=== PATIENT | male | born 1945 | race Hispanic/Latino ===

== ENCOUNTER 2017-01-22 09:30 | Emergency (ER) | payer MEDICARE ==
--- NOTE | 2017-01-22 09:40 | Emergency Department Report ---
ED Neuro Deficit HPI - General Chief Complaint: Neuro Symptoms/Deficit Stated Complaint: POSS STROKE Time Seen by Provider: 01/22/17 09:37 Source: patient, EMS (verbal report received from EMS.ems notes not available at time of chart dictation) Limitations: Physical Limitation - History of Present Illness Initial Comments: Past medical history: Hypertension, distant history of necrotizing fasciitis Primary care DrAdia: Rohit This is a 71-year-old male, previously unknown to this provider, brought to the hospital by EMS as a possible code stroke. Patient reports that at 1:00 in the morning, he went up to go to the bathroom, and felt like his left leg wasn't working correctly. He then went back to sleep. He reports waking up at 7:00 in the morning, still with persistent left sided leg weakness, and then reports that at 7:15 in the morning, developed clumsiness in the left upper extremity, as well as left-sided facial droop. He is not having any pain. His symptoms are constant. They did not have exacerbating or relieving factors. -: Gradual Location: left face, left arm, left leg Presenting Symptoms: Present: Weak/Paralyzed One Side, Facial Droop/Numbness History of same: No Place: home Severity: moderate Quality: weak, numb Improves With: none Worsens With: none On Anticoagulants: No Context: gradual onset Associated Symptoms: denies: confusion, chest pain, cough, diaphoresis, fever/ chills, headaches, loss of appetite, malise, nausea/vomiting, vertigo, shortness of breath, syncope, weakness - Related Data Allergies/Adverse Reactions: Allergies Allergy/AdvReac Type Severity Reaction Status Date / Time No Known Allergies Allergy Unverified 01/22/17 09:39 ED Review of Systems ROS: Stated complaint: POSS STROKE Other details as noted in HPI Constitutional: denies: fever Eyes: denies: eye discharge ENT: denies: epistaxis Respiratory: denies: cough Cardiovascular: denies: chest pain Gastrointestinal: denies: abdominal pain Genitourinary: denies: dysuria Musculoskeletal: denies: back pain Skin: denies: lesions Neurological: weakness ED Neuro Physical Exam - General Limitations: Physical Limitation General appearance: alert, in no apparent distress Suspected Stroke: Yes - Head Head exam: Present: atraumatic, normocephalic - Eye Eye exam: Present: normal appearance, EOMI. Absent: nystagmus - ENT ENT exam: Present: normal exam, normal orophraynx, mucous membranes moist, normal external ear exam - Neck Neck exam: Present: normal inspection, full ROM. Absent: tenderness, meningismus - Respiratory Respiratory exam: Present: normal lung sounds bilaterally. Absent: respiratory distress, wheezes, rales, rhonchi, stridor, chest wall tenderness, accessory muscle use, decreased breath sounds, prolonged expiratory - Cardiovascular Cardiovascular Exam: Present: regular rate, normal rhythm, normal heart sounds. Absent: bradycardia, tachycardia, irregular rhythm, systolic murmur, diastolic murmur, rubs, gallop - GI/Abdominal GI/Abdominal exam: Present: soft, normal bowel sounds. Absent: distended, tenderness, guarding, rebound, rigid - Rectal Rectal exam: Present: deferred - Extremities Exam Extremities exam: Present: normal inspection, full ROM, normal capillary refill. Absent: tenderness, calf tenderness - Back Exam Back exam: Present: normal inspection. Absent: tenderness, CVA tenderness (R) - Neurological Exam Neurological exam: Present: alert, oriented X3, motor sensory deficit (there is 4 out of 5 strength left upper extremity. Left upper extremity is clumsy and ataxic. There is a left-sided facial droop which is minor. Extraocular movements are intact bilaterally. The tongue is midline. V1, V2, V3 intact bilaterally. Shoulder shrug intact bilaterally. Hearing intact bilaterally. 5 out of 5 strength right upper, bilateral lower extremities. Sensation intact to light touch upper and lower extremities) - NIHSS Assessment Interval: Baseline 1a. Level of Consciousness: alert 1b. LOC Questions: answers correctly 1c. LOC Commands: performs tasks correctly 2. Best Gaze: normal 3. Visual: no visual loss 4. Facial Palsy: minor paralysis 5b. Motor Arm Right: no drift 5a. Motor Arm Left: drift 6a. Motor Leg Left: no drift 6b. Motor Leg Right: no drift 7. Limb Ataxia: present 1 limb 8. Sensory: normal 9. Best Language: no aphasia 10. Dysarthria: normal 11. Extinction/Inattention: no abnormality Total Score: 3 Stroke Severity: Minor Stroke - Psychiatric Psychiatric exam: Present: normal affect, normal mood - Skin Skin exam: Present: warm, dry, intact, normal color. Absent: rash ED Course Vital Signs 01/22/17 01/22/17 01/22/17 09:51 09:59 10:00 Temperature 97.9 F Pulse Rate 88 78 82 Respiratory 16 18 Rate Blood Pressure 150/82 154/77 O2 Sat by Pulse 99 94 Oximetry 01/22/17 01/22/17 01/22/17 10:11 10:21 10:30 Temperature Pulse Rate 82 81 91 H Respiratory 18 14 14 Rate Blood Pressure 154/77 154/77 149/86 O2 Sat by Pulse 98 96 96 Oximetry - Reevaluation(s) Reevaluation #1: 01/22/17 11:07 Patient accepted to [facility], Dr. Isidro Colindres is the accepting physician for [place] - Lab Data Result diagrams: 01/22/17 Unknown 01/22/17 Unknown Lab Results 01/22/17 01/22/17 01/22/17 Range/Units Unknown Unknown Unknown WBC 6.4 (4.5-11.0) K/mm3 RBC 4.50 (3.65-5.03) M/mm3 Hgb 15.8 H (11.8-15.2) gm/dl Hct 45.0 (35.5-45.6) % MCV 100 H (84-94) fl MCH 35 H (28-32) pg MCHC 35 H (32-34) % RDW 13.4 (13.2-15.2) % Plt Count 140 (140-440) K/mm3 Lymph % (Auto) 18.2 (13.4-35.0) % [place] % (Auto) 9.8 H (0.0-7.3) % Eos % (Auto) 6.3 H (0.0-4.3) % Baso % (Auto) 0.9 (0.0-1.8) % Lymph # 1.2 (1.2-5.4) K/mm3 [place] # 0.7 (0.0-0.8) K/mm3 Eos # 0.4 (0.0-0.4) K/mm3 Baso # 0.1 (0.0-0.1) K/mm3 Seg Neutrophils % 64.8 (40.0-70.0) % Seg Neutrophils # 4.3 (1.8-7.7) K/mm3 PT 16.1 H (12.2-14.9) Sec. INR 1.23 H (0.87-1.13) APTT 54.1 H (24.2-36.6) Sec. Thrombin Time 21.5 H (15.1-19.6) Sec. Sodium 125 L (137-145) mmol/L Potassium 4.1 (3.6-5.0) mmol/L Chloride 88.1 L (98-107) mmol/L Carbon Dioxide 19 L (22-30) mmol/L Anion Gap 22 mmol/L BUN 8 L (9-20) mg/dL Creatinine 0.6 L (0.8-1.5) mg/dL Estimated GFR > 60 ml/min BUN/Creatinine Ratio 13 % Glucose 87 (75-100) mg/dL Calcium 9.3 (8.4-10.2) mg/dL Total Bilirubin 1.20 (0.1-1.2) mg/dL AST 36 (5-40) units/L ALT 24 (7-56) units/L Alkaline Phosphatase 61 (35-129) units/L Total Creatine Kinase 199 H (55-170) units/L CK-MB (CK-2) 7.2 H (0.0-4.0) ng/mL CK-MB (CK-2) Rel Index 3.6 (0-4) Troponin T < 0.010 (0.00-0.029) ng/mL Total Protein 6.9 (6.3-8.2) g/dL Albumin 4.0 (3.9-5) g/dL Albumin/Globulin Ratio 1.4 % - EKG Data -: EKG Interpreted by Ut EKG shows normal: sinus rhythm When compared to previous EKG there are: previous EKG unavailable 01/22/17 10:56 Normal sinus, 80 bpm, left axis deviation, poor R-wave progression, abnormal EKG , QTC prolonged, not morphologically consistent with stemi - Radiology Data Radiology results: report reviewed, image reviewed - Medical Decision Making Differential diagnosis: Subacute stroke, pneumonia, urinary tract infection, electrolyte derangement Assessment and plan: 71-year-old male with no chest pain or shortness of breath , no focal pulmonary findings, saturating well, with strokelike syndrome. Patient presented more than 4.5 hours after symptom onset (leg weakness), therefore is not a thrombolysis candidate. Patient presented after a prolonged period of time, and is therefore not an endovascular candidate. The patient's case, physical exam findings and CT scan findings were discussed with consulting neurology, Dr. Geovany Bro, who also agreed that the patient was on an endovascular or thrombolysis candidate. Patient currently has an NIH score of 3 , and appears quite comfortable. Extensive discussion had with family, and patient, everyone understands why patient is not a TPA candidate. We'll discuss with [place], as patient has [place] insurance to arrange final disposition. Critical care attestation.: If time is entered above; I have spent that time in minutes in the direct care of this critically ill patient, excluding procedure time. ED Disposition Clinical Impression: CVA (cerebral vascular accident) Qualifiers: CVA mechanism: unspecified Qualified Code(s): I63.9 - Cerebral infarction, unspecified Disposition: DC/TX-02 SHRT-TRM GEN HOSP IP Is pt being admited?: Yes Does the pt Need Aspirin: Yes Condition: Good Referrals: PRIMARY CARE, [Primary Care Provider] - 3-5 Days
[2017-01-22 09:49] LABS: Hemoglobin 15.8 gm/dl (11.8-15.2); Mean Corpuscular HGB Conc 35 % (32-34); Mean Corpuscular Hemoglobin 35 pg (28-32); Mean Corpuscular Volume 100 fl (84-94); Platelet Count 140 K/mm3 (140-440); Red Cell Distribution Width 13.4 % (13.2-15.2); White Blood Count 6.4 K/mm3 (4.5-11.0)
--- NOTE | 2017-01-22 09:51 | Cat Scan Report ---
CT HEAD WITHOUT CONTRAST: HISTORY: Stroke. TECHNIQUE: Sequential CT images without contrast. FINDINGS: Images obtained show bilateral prominence of the sulci and ventricles. There are no abnormal intra- or extra-axial blood or fluid collections. There are no focal masses or evidence of mass effect. The abreu white matter differentiation appears within normal limits. Regions of periventricular decreased attenuation are consistent with microangiopathic ischemic disease. The posterior fossa structures including the fourth ventricle, cerebellum, and brainstem appear normal. IMPRESSION: Evidence of atrophy and microangiopathic ischemic disease. No acute intracranial process noted. These findings were discussed with Dr. Monzon At 0946 hours.
[2017-01-22 09:53] LABS: INR 1.23 (0.87-1.13)
[2017-01-22 09:56] LABS: Basophils % (Auto) 0.9 % (0.0-1.8); Eosinophils % (Auto) 6.3 % (0.0-4.3)
[2017-01-22 09:59] LABS: Creatine Kinase MB 7.2 ng/mL (0.0-4.0)
[2017-01-22 10:00] LABS: Alanine Aminotransferase 24 units/L (7-56); BUN/Creatinine Ratio 13; Blood Urea Nitrogen 8 mg/dL (9-20); Calcium 9.3 mg/dL (8.4-10.2); Carbon Dioxide 19 mmol/L (22-30); Creatine Kinase 199 units/L (55-170); Glucose 87 mg/dL (75-100); Total Protein 6.9 g/dL (6.3-8.2)
[2017-01-22 10:01] LABS: Albumin/Globulin Ratio 1.4 %; Anion Gap 22 mmol/L; Chloride 88.1 mmol/L (98-107); Partial Thromboplastin Time 54.1 Sec. (24.2-36.6); Potassium 4.1 mmol/L (3.6-5.0); Sodium 125 mmol/L (137-145)
[2017-01-22] MEDS ORDERED: NACL 0.9% 500 ML 500 ML IV ONE (10:14)
[2017-01-22] MEDS ORDERED: BABY ASPIRIN PO ONE (10:14)
[2017-01-22 10:29] LABS: Alkaline Phosphatase 61 units/L (35-129)
[2017-01-22 11:59] VITALS: BP 139/78
== END 2017-01-22 12:10 | disposition short-term general hospital (02) ==
LOC: ED 09:30
DX: I63.9 Cerebral infarction, unspecified (principal)
CPT/HCPCS: 36415; 70450; 80053; 82550; 82553; 82962; 84484; 85025; 85610; 85670; 85730; 93005; 93010; 96360; 99285; J7040